=== PATIENT | female | born 1950 | race Caucasian/White ===

== ENCOUNTER 2018-06-09 22:47 | Emergency (ER) | payer MEDICARE, OTHER ==
[~2018-06-09] VITALS: Ht 160 cm; Wt 70.5 kg
[~2018-06-09 22:47] MED LIST: GABA-532 PO; SOLI10TA2 PO
[2018-06-09 22:55] VITALS: BP 165/81
[2018-06-09 23:10] LABS: CLARITY,URINE CLEAR (Clear); COLOR,URINE YELLOW (Yellow); GLUCOSE, URINE NEGATIVE (Neg); KETONES,URINE NEGATIVE (Neg); LEUKOCYTE ESTERASE ,URINE NEGATIVE (Neg); NITRITES, URINE NEGATIVE (Neg); OCCULT BLOOD,URINE SMALL (Neg); PROTEIN,URINE NEGATIVE (Neg); UROBILINOGEN,URINE 0.2 E.U/dL (0.2-1.0)
[2018-06-09 23:15] LABS: UA COLLECTION TYPE CLN CATCH MIDSTREAM
[2018-06-09 23:17] LABS: BACTERIA,URINE FEW /HPF (Neg); MUCUS STRANDS NONE SEEN /LPF (Neg); RBC,URINE 0-2 /HPF (0-2); SQUAMOUS EPITHELIAL CELL,UR FEW /LPF (FEW); WBC,URINE NONE SEEN /HPF (0-4)
[2018-06-09] MEDS ORDERED: NITR100C6 PO (23:18)
== END 2018-06-09 23:27 | disposition home or self-care (01) ==
LOC: ER 22:47
DX: R35.0 Frequency of micturition (principal); K21.9 Gastro-esophageal reflux disease without esophagitis; Z79.899 Other long term (current) drug therapy
CPT/HCPCS: 81001; 99283

== ENCOUNTER 2019-10-17 06:02 | Emergency (ER) | payer MEDICARE ==
[~2019-10-17] VITALS: Ht 160 cm; Wt 61.3 kg
[2019-10-17 06:55] VITALS: BP 160/125
== END 2019-10-17 07:27 | disposition home or self-care (01) ==
LOC: ER 06:02
DX: T36.95XA Adverse effect of unspecified systemic antibiotic, initial encounter (principal); R19.7 Diarrhea, unspecified; K21.9 Gastro-esophageal reflux disease without esophagitis; F41.9 Anxiety disorder, unspecified; F32.9 Major depressive disorder, single episode, unspecified; Z90.49 Acquired absence of other specified parts of digestive tract; Z98.890 Other specified postprocedural states; Z60.2 Problems related to living alone; Z79.899 Other long term (current) drug therapy; Y92.89 Other specified places as the place of occurrence of the external cause
CPT/HCPCS: 99281

== ENCOUNTER 2020-03-10 23:53 | Emergency (ER) | payer MEDICARE, MEDICAID ==
[~2020-03-10] VITALS: Ht 160 cm; Wt 60.0 kg
[2020-03-10 23:59] VITALS: BP 174/103
[2020-03-11 00:22] LABS: CLARITY,URINE CLEAR (Clear); COLOR,URINE STRAW (Yellow); GLUCOSE, URINE NEGATIVE (Neg); KETONES,URINE NEGATIVE (Neg); LEUKOCYTE ESTERASE ,URINE NEGATIVE (Neg); NITRITES, URINE NEGATIVE (Neg); OCCULT BLOOD,URINE TRACE-LYSED (Neg); PROTEIN,URINE NEGATIVE (Neg); UROBILINOGEN,URINE 0.2 E.U/dL (0.2-1.0)
[2020-03-11 00:27] LABS: BACTERIA,URINE NONE SEEN /HPF (Neg); RBC,URINE 0-2 /HPF (0-2); UA COLLECTION TYPE CLN CATCH MIDSTREAM; WBC,URINE NONE SEEN /HPF (0-4)
[2020-03-11 00:28] LABS: SQUAMOUS EPITHELIAL CELL,UR FEW /LPF (FEW)
== END 2020-03-11 00:48 | disposition home or self-care (01) ==
LOC: ER 23:54
DX: R35.0 Frequency of micturition (principal); K21.9 Gastro-esophageal reflux disease without esophagitis; F41.9 Anxiety disorder, unspecified; F32.9 Major depressive disorder, single episode, unspecified; Z98.890 Other specified postprocedural states; Z60.2 Problems related to living alone; Z79.899 Other long term (current) drug therapy
CPT/HCPCS: 81001; 99283

== ENCOUNTER 2020-10-08 06:01 | Emergency (ER) | payer MEDICARE, MEDICAID ==
[~2020-10-08] VITALS: Ht 160 cm; Wt 138.0 kg
[2020-10-08 06:42] VITALS: BP 140/73
== END 2020-10-08 06:45 | disposition home or self-care (01) ==
LOC: ER 06:02
DX: R00.2 Palpitations (principal); R06.02 Shortness of breath; K21.9 Gastro-esophageal reflux disease without esophagitis; F41.9 Anxiety disorder, unspecified; F32.9 Major depressive disorder, single episode, unspecified; Z87.440 Personal history of urinary (tract) infections; Z90.89 Acquired absence of other organs; Z98.890 Other specified postprocedural states; Z60.2 Problems related to living alone; Z79.899 Other long term (current) drug therapy
CPT/HCPCS: 93005; 99283

== ENCOUNTER 2021-01-30 20:45 | Emergency (ER) | payer MEDICARE, MEDICAID ==
[~2021-01-30] VITALS: Ht 160 cm; Wt 62.7 kg
[2021-01-30 22:57] LABS: CLARITY,URINE CLEAR (Clear); COLOR,URINE YELLOW (Yellow); GLUCOSE, URINE NEGATIVE (Neg); KETONES,URINE NEGATIVE (Neg); LEUKOCYTE ESTERASE ,URINE TRACE (Neg); NITRITES, URINE NEGATIVE (Neg); OCCULT BLOOD,URINE TRACE-INTACT (Neg); PH,URINE 5.5 (4.8-8.0); PROTEIN,URINE NEGATIVE (Neg); UROBILINOGEN,URINE 0.2 E.U/dL (0.2-1.0)
[2021-01-30 23:24] LABS: UA COLLECTION TYPE NON-SPECIFIED
[2021-01-30 23:25] LABS: BACTERIA,URINE NONE SEEN /HPF (Neg); RBC,URINE 0-2 /HPF (0-2); SQUAMOUS EPITHELIAL CELL,UR FEW /LPF (FEW); WBC,URINE 0-4 /HPF (0-4)
[2021-01-30 23:59] VITALS: BP 167/80
== END 2021-01-31 | disposition home or self-care (01) ==
LOC: ER 20:46
DX: R30.0 Dysuria (principal); R35.0 Frequency of micturition; K21.9 Gastro-esophageal reflux disease without esophagitis; Z90.49 Acquired absence of other specified parts of digestive tract; Z90.721 Acquired absence of ovaries, unilateral; Z87.440 Personal history of urinary (tract) infections; Z79.899 Other long term (current) drug therapy
CPT/HCPCS: 81001; 87088; 99283

== ENCOUNTER 2021-02-10 10:14 | Emergency (ER) | payer MEDICARE, MEDICAID ==
[~2021-02-10] VITALS: Ht 160 cm; Wt 62.7 kg
[2021-02-10 10:26] VITALS: BP 132/90
[2021-02-10 10:53] LABS: CLARITY,URINE CLEAR (Clear); COLOR,URINE YELLOW (Yellow); GLUCOSE, URINE NEGATIVE (Neg); KETONES,URINE NEGATIVE (Neg); LEUKOCYTE ESTERASE ,URINE SMALL (Neg); NITRITES, URINE NEGATIVE (Neg); OCCULT BLOOD,URINE SMALL (Neg); PROTEIN,URINE NEGATIVE (Neg); UROBILINOGEN,URINE 0.2 E.U/dL (0.2-1.0)
[2021-02-10 10:56] LABS: UA COLLECTION TYPE CLN CATCH MIDSTREAM
[2021-02-10 11:02] LABS: BACTERIA,URINE FEW /HPF (Neg); MUCUS STRANDS NONE SEEN /LPF (Neg); RBC,URINE 0-2 /HPF (0-2); SQUAMOUS EPITHELIAL CELL,UR MODERATE /LPF (FEW); WBC CLUMPS,URINE FEW /HPF (NEGATIVE)
[2021-02-10] MEDS ORDERED: fluconazole 150mg tablet PO ONE (11:55)
== END 2021-02-10 11:59 | disposition home or self-care (01) ==
LOC: ER 10:16
DX: B37.3 Candidiasis of vulva and vagina (principal); K21.9 Gastro-esophageal reflux disease without esophagitis; Z87.440 Personal history of urinary (tract) infections; Z90.49 Acquired absence of other specified parts of digestive tract; Z90.721 Acquired absence of ovaries, unilateral; Z79.899 Other long term (current) drug therapy; Z86.19 Personal history of other infectious and parasitic diseases
CPT/HCPCS: 81001; 87077; 87088; 87186; 99283

== ENCOUNTER 2021-08-17 03:48 | Emergency (ER) | payer MEDICARE, MEDICAID ==
[~2021-08-17] VITALS: Ht 160 cm; Wt 70.5 kg
[2021-08-17] MEDS ORDERED: normal saline 1000ml 1,000 ML IV ONE (04:00)
[2021-08-17 04:25] LABS: BASOPHILS % (AUTO) 0.2 % (0-1); EOSINOPHILS # (AUTO) 0.2 X10'3 (0-0.9); EOSINOPHILS % (AUTO) 2.8 % (0-6); HEMATOCRIT 44.9 % (35.0-45.0); HEMOGLOBIN 15.1 g/dl (12.0-16.0); LYMPHOCYTES # (AUTO) 4.1 X10'3 (1.1-4.8); LYMPHOCYTES % (AUTO) 48.6 % (21-51); MEAN CORPUSCULAR HEMOGLOBIN 29.1 PG (27.0-31.0); MEAN CORPUSCULAR HGB CONC 33.6 g/dL (33.0-36.5); MEAN CORPUSCULAR VOLUME 86.7 FL (78-98); MEAN PLATELET VOLUME 8.3 FL (7.4-10.4); MONOCYTES # (AUTO) 0.7 X10'3 (0-0.9); MONOCYTES % (AUTO) 8.6 % (2-12); NEUTROPHILS # (AUTO) 3.3 X10'3 (1.8-7.7); NEUTROPHILS % (AUTO) 39.8 % (42-75); PLATELET COUNT 287 X10'3 (140-440); RED BLOOD COUNT 5.18 X10'6 (4.20-5.60); RED CELL DISTRIBUTION WIDTH 13.2 % (11.5-14.5); WHITE BLOOD COUNT 8.3 X10'3 (4.5-11.0)
[2021-08-17] MEDS ORDERED: ondansetron/PF 4mg/2ml inj IV ONE (04:25)
[2021-08-17 04:36] LABS: ALANINE AMINOTRANSFERASE 47 U/L (12-78); ALBUMIN 3.8 G/DL (3.4-5.0); ALKALINE PHOSPHATASE 102 IU/L (46-116); ANION GAP 13 (8-16); ASPARTATE AMINO TRANSFERASE 28 U/L (10-37); BILIRUBIN,TOTAL 0.3 MG/DL (0.1-1.0); BLOOD UREA NITROGEN 18 MG/DL (7-18); BUN/CREATININE RATIO 18.8 (6.6-38.0); CHLORIDE 105 MMOL/L (99-107); CREATININE 0.96 MG/DL (0.40-0.90); GLUCOSE 126 MG/DL (70-104); POTASSIUM 3.2 MMOL/L (3.5-5.1); SODIUM 141 MMOL/L (135-145); TOTAL CARBON DIOXIDE 22.6 MMOL/L (24-32); TOTAL PROTEIN 7.5 G/DL (6.4-8.2); eGFR 57 ML/MIN
[2021-08-17 04:40] LABS: BILIRUBIN,DIRECT 0.1 MG/DL (0-0.3); LIPASE 133 U/L (73-393)
[2021-08-17] MEDS ORDERED: meclizine 12.5mg tablet PO ONE (04:55)
[2021-08-17 05:14] LABS: CLARITY,URINE SLIGHTLY CLOUDY (Clear); COLOR,URINE YELLOW (Yellow); GLUCOSE, URINE NEGATIVE (Neg); KETONES,URINE NEGATIVE (Neg); LEUKOCYTE ESTERASE ,URINE NEGATIVE (Neg); NITRITES, URINE NEGATIVE (Neg); OCCULT BLOOD,URINE SMALL (Neg); PH,URINE 5.5 (4.8-8.0); PROTEIN,URINE 100 mg/dl (Neg); UROBILINOGEN,URINE 0.2 E.U/dL (0.2-1.0)
[2021-08-17] MEDS ORDERED: metoclopramide 5 mg/ml inj IV ONE (05:15)
[2021-08-17 05:16] LABS: UA COLLECTION TYPE CLN CATCH MIDSTREAM
[2021-08-17 05:20] LABS: HYALINE CASTS 0-3 /LPF (NEGATIVE); MUCUS STRANDS FEW /LPF (Neg); SQUAMOUS EPITHELIAL CELL,UR MODERATE /LPF (FEW)
[2021-08-17 05:24] LABS: BACTERIA,URINE 1+ /HPF (Neg)
[2021-08-17 05:28] LABS: RBC,URINE 0-2 /HPF (0-2); WBC,URINE 0-4 /HPF (0-4)
[2021-08-17 05:32] VITALS: BP 122/68
[2021-08-17] MEDS ORDERED: MECL-159 PO (06:12)
[2021-08-17] MEDS ORDERED: ONDA4TAB12 PO (06:12)
== END 2021-08-17 06:16 | disposition home or self-care (01) ==
LOC: ER 03:48
DX: F41.0 Panic disorder [episodic paroxysmal anxiety] (principal); R11.2 Nausea with vomiting, unspecified; R42 Dizziness and giddiness; K21.9 Gastro-esophageal reflux disease without esophagitis; F32.9 Major depressive disorder, single episode, unspecified; Z87.440 Personal history of urinary (tract) infections; Z90.89 Acquired absence of other organs; Z98.890 Other specified postprocedural states; Z60.2 Problems related to living alone; Z79.899 Other long term (current) drug therapy
CPT/HCPCS: 36415; 71045; 80048; 80076; 81001; 83690; 84484; 85025; 93005; 96361; 96374; 96375; 99285; J2405; J2765; J7030; J8597

== ENCOUNTER 2023-01-04 21:01 | Emergency (ER) | payer MEDICARE, MEDICAID ==
[~2023-01-04] VITALS: Ht 160 cm; Wt 101.6 kg
[~2023-01-04 21:01] MED LIST changes: +MECL-159 PO; +ONDA4TAB12 PO
[2023-01-04 21:05] VITALS: BP 185/101
[2023-01-04 23:15] LABS: ALANINE AMINOTRANSFERASE 54 U/L (12-78); ALBUMIN 4.1 G/DL (3.4-5.0); ALBUMIN/GLOBULIN RATIO 1.1 (1.1-1.5); ALKALINE PHOSPHATASE 121 IU/L (46-116); ANION GAP 9 (8-16); ASPARTATE AMINO TRANSFERASE 29 U/L (10-37); BASOPHILS % (AUTO) 0.6 % (0-1); BILIRUBIN,TOTAL 0.3 MG/DL (0.1-1.0); BLOOD UREA NITROGEN 14 MG/DL (7-18); BUN/CREATININE RATIO 12.8 (10.0-20.0); CALCIUM 9.5 MG/DL (8.5-10.1); CHLORIDE 103 MMOL/L (99-107); CREATININE 1.09 MG/DL (0.40-0.90); EOSINOPHILS # (AUTO) 0.2 X10'3 (0-0.9); EOSINOPHILS % (AUTO) 2.7 % (0-6); GLUCOSE 103 MG/DL (70-104); HEMATOCRIT 45.6 % (35.0-45.0); HEMOGLOBIN 15.5 g/dl (12.0-16.0); LYMPHOCYTES % (AUTO) 25.4 % (21-51); MEAN CORPUSCULAR HEMOGLOBIN 29.2 PG (27.0-31.0); MEAN CORPUSCULAR HGB CONC 33.9 g/dL (33.0-36.5); MEAN CORPUSCULAR VOLUME 86.1 FL (78-98); MEAN PLATELET VOLUME 8.2 FL (7.4-10.4); MONOCYTES # (AUTO) 0.6 X10'3 (0-0.9); MONOCYTES % (AUTO) 7.2 % (2-12); NEUTROPHILS # (AUTO) 5.1 X10'3 (1.8-7.7); NEUTROPHILS % (AUTO) 64.1 % (42-75); PLATELET COUNT 262 X10'3 (140-440); POTASSIUM 3.3 MMOL/L (3.5-5.1); RED CELL DISTRIBUTION WIDTH 13.4 % (11.5-14.5); SODIUM 141 MMOL/L (135-145); TOTAL CARBON DIOXIDE 28.9 MMOL/L (24-32); TOTAL PROTEIN 7.8 G/DL (6.4-8.2); WHITE BLOOD COUNT 7.9 X10'3 (4.5-11.0); eGFR 49 ML/MIN
[2023-01-04 23:23] LABS: CLARITY,URINE CLEAR (Clear); COLOR,URINE STRAW (Yellow); GLUCOSE, URINE NEGATIVE (Neg); KETONES,URINE NEGATIVE (Neg); LEUKOCYTE ESTERASE ,URINE NEGATIVE (Neg); NITRITES, URINE NEGATIVE (Neg); OCCULT BLOOD,URINE TRACE-INTACT (Neg); PROTEIN,URINE NEGATIVE (Neg); UROBILINOGEN,URINE 0.2 E.U/dL (0.2-1.0)
[2023-01-04 23:25] LABS: UA COLLECTION TYPE CLN CATCH MIDSTREAM
[2023-01-04] MEDS ORDERED: potassium Cl 20 mEq SR tablet PO ONE (23:30)
[2023-01-04 23:38] LABS: BACTERIA,URINE NONE SEEN /HPF (Neg); MUCUS STRANDS FEW /LPF (Neg); RBC,URINE NONE SEEN /HPF (0-2); SQUAMOUS EPITHELIAL CELL,UR FEW /LPF (FEW); WBC,URINE 0-4 /HPF (0-4)
== END 2023-01-04 23:41 | disposition home or self-care (01) ==
LOC: ER 21:01
DX: E87.6 Hypokalemia (principal); F31.9 Bipolar disorder, unspecified; F32.A Depression, unspecified; K21.9 Gastro-esophageal reflux disease without esophagitis; Z90.49 Acquired absence of other specified parts of digestive tract; Z79.899 Other long term (current) drug therapy
CPT/HCPCS: 36415; 80053; 81001; 85025; 93005; 99284

== ENCOUNTER 2023-10-06 22:59 | Emergency (ER) | payer MEDICARE, MEDICAID ==
[~2023-10-06] VITALS: Ht 160 cm; Wt 61.4 kg
[~2023-10-06 22:59] MED LIST changes: -MECL-159 PO; +MECL-302 PO
[2023-10-06 23:00] VITALS: BP 163/90; PULSE 100; O2SAT 99
[2023-10-06 23:10] VITALS: RESP 18
[2023-10-06] MEDS ORDERED: AMIT25TA9 PO (23:19)
[2023-10-06] MEDS ORDERED: ESTR42.510 VG (23:19)
[2023-10-06] MEDS: LORazepam 0.5 MG tablet PO ONE (23:32)
[2023-10-07 00:21] VITALS: TEMP 98.2
== END 2023-10-07 00:23 | disposition home or self-care (01) ==
LOC: ER 23:00
DX: F41.9 Anxiety disorder, unspecified (principal); K21.9 Gastro-esophageal reflux disease without esophagitis; Z79.899 Other long term (current) drug therapy; Z98.890 Other specified postprocedural states
CPT/HCPCS: 99284

== ENCOUNTER 2023-10-24 16:42 | Emergency (ER) | payer MEDICARE, MEDICAID ==
[~2023-10-24] VITALS: Ht 160 cm; Wt 61.4 kg
[~2023-10-24 16:42] MED LIST changes: +AMIT25TA9 PO; +ESTR42.510 VG; -GABA-532 PO; -MECL-302 PO; -ONDA4TAB12 PO; -SOLI10TA2 PO
[2023-10-24 17:02] VITALS: BP 154/84; PULSE 116; RESP 18; TEMP 98; O2SAT 99
[2023-10-24 17:42] LABS: BASOPHILS % (AUTO) 0.7 % (0-1); EOSINOPHILS # (AUTO) 0.1 X10'3 (0-0.9); HEMATOCRIT 47.6 % (35.0-45.0); LYMPHOCYTES % (AUTO) 31.5 % (21-51); MEAN CORPUSCULAR HEMOGLOBIN 29.1 PG (27.0-31.0); MEAN CORPUSCULAR HGB CONC 33.7 g/dL (33.0-36.5); MEAN CORPUSCULAR VOLUME 86.3 FL (78-98); MEAN PLATELET VOLUME 8.7 FL (7.4-10.4); MONOCYTES # (AUTO) 0.5 X10'3 (0-0.9); MONOCYTES % (AUTO) 7.9 % (2-12); NEUTROPHILS # (AUTO) 3.6 X10'3 (1.8-7.7); NEUTROPHILS % (AUTO) 57.9 % (42-75); PLATELET COUNT 274 X10'3 (140-440); RED BLOOD COUNT 5.51 X10'6 (4.20-5.60); RED CELL DISTRIBUTION WIDTH 13.6 % (11.5-14.5); WHITE BLOOD COUNT 6.2 X10'3 (4.5-11.0)
[2023-10-24 17:49] LABS: ALBUMIN 3.7 G/DL (3.4-5.0); ANION GAP 10 (8-16); BLOOD UREA NITROGEN 11 MG/DL (7-18); BUN/CREATININE RATIO 9.7 (10.0-20.0); CALCIUM 8.9 MG/DL (8.5-10.1); CHLORIDE 103 MMOL/L (99-107); CREATININE 1.13 MG/DL (0.40-0.90); GLUCOSE 126 MG/DL (70-104); LIPASE 47 U/L (16-77); POTASSIUM 3.2 MMOL/L (3.5-5.1); SODIUM 139 MMOL/L (135-145); TOTAL CARBON DIOXIDE 25.7 MMOL/L (24-32); eCRCL 36 ML/MIN; eGFR 47 ML/MIN
[2023-10-24 18:01] LABS: BILIRUBIN,URINE NEGATIVE (Neg); CLARITY,URINE CLEAR (Clear); COLOR,URINE YELLOW (Yellow); GLUCOSE, URINE NEGATIVE (Neg); KETONES,URINE NEGATIVE (Neg); LEUKOCYTE ESTERASE ,URINE NEGATIVE (Neg); NITRITES, URINE NEGATIVE (Neg); OCCULT BLOOD,URINE TRACE-INTACT (Neg); PROTEIN,URINE NEGATIVE (Neg); UROBILINOGEN,URINE 0.2 E.U/dL (0.2-1.0)
[2023-10-24 18:33] LABS: UA COLLECTION TYPE CLN CATCH MIDSTREAM
[2023-10-24 18:38] LABS: SQUAMOUS EPITHELIAL CELL,UR FEW /LPF (FEW)
[2023-10-24 18:39] LABS: BACTERIA,URINE NONE SEEN /HPF (Neg); RBC,URINE 0-2 /HPF (0-2); WBC,URINE NONE SEEN /HPF (0-4)
== END 2023-10-24 19:05 | disposition home or self-care (01) ==
LOC: ER 16:43
DX: F41.1 Generalized anxiety disorder (principal); K21.9 Gastro-esophageal reflux disease without esophagitis; F32.9 Major depressive disorder, single episode, unspecified; Z90.49 Acquired absence of other specified parts of digestive tract
CPT/HCPCS: 36415; 80048; 81001; 83690; 84484; 85025; 99283

== ENCOUNTER 2024-02-09 22:41 | Emergency (ER) | payer MEDICARE, MEDICAID ==
[~2024-02-09] VITALS: Ht 160 cm; Wt 61.0 kg
[2024-02-09 23:06] LABS: BILIRUBIN,URINE NEGATIVE (Neg); CLARITY,URINE CLEAR (Clear); COLOR,URINE STRAW (Yellow); GLUCOSE, URINE NEGATIVE (Neg); KETONES,URINE NEGATIVE (Neg); LEUKOCYTE ESTERASE ,URINE TRACE (Neg); NITRITES, URINE NEGATIVE (Neg); OCCULT BLOOD,URINE TRACE-INTACT (Neg); PROTEIN,URINE NEGATIVE (Neg); UROBILINOGEN,URINE 0.2 E.U/dL (0.2-1.0)
[2024-02-09 23:11] LABS: UA COLLECTION TYPE CLN CATCH MIDSTREAM
[2024-02-09 23:30] LABS: BACTERIA,URINE FEW /HPF (Neg); RBC,URINE 0-2 /HPF (0-2); SQUAMOUS EPITHELIAL CELL,UR FEW /LPF (FEW); URIC ACID CRYSTALS FEW /HPF (NEGATIVE); WBC,URINE 0-4 /HPF (0-4)
[2024-02-09] MEDS ORDERED: NITR100C6 PO (23:47)
[2024-02-09] MEDS ORDERED: PHEN-716 PO (23:47)
[2024-02-09 23:49] VITALS: BP 132/78; PULSE 74; RESP 18; TEMP 98.7; O2SAT 99
== END 2024-02-09 23:52 | disposition home or self-care (01) ==
LOC: ER 22:41
DX: N39.0 Urinary tract infection, site not specified (principal); K21.9 Gastro-esophageal reflux disease without esophagitis; F41.9 Anxiety disorder, unspecified; F32.A Depression, unspecified; Z90.49 Acquired absence of other specified parts of digestive tract; Z98.890 Other specified postprocedural states; Z60.2 Problems related to living alone; Z79.899 Other long term (current) drug therapy
CPT/HCPCS: 81001; 87088; 99283